=== PATIENT | male | born 1975 | race Caucasian/White ===

== ENCOUNTER 2019-08-18 12:22 | Emergency (ER) | payer OTHER ==
[~2019-08-18] VITALS: Ht 167.6 cm; Wt 107.5 kg
== END 2019-08-18 15:23 | disposition home or self-care (01) ==
LOC: ER 12:22
DX: M94.0 Chondrocostal junction syndrome [Tietze] (principal)

== ENCOUNTER 2024-05-05 07:40 | Emergency (ER) | payer OTHER ==
[~2024-05-05] VITALS: Ht 167.6 cm; Wt 124.7 kg
[2024-05-05 07:46] VITALS: BP 107/68; O2SAT 96
[2024-05-05] MEDS ORDERED: GLUMETZA500 MG (07:46)
[2024-05-05] MEDS ORDERED: SYMBICORT 16010.2 GM (07:48)
[2024-05-05] MEDS ORDERED: LEVALBUTEROL HCL 0.63 MG/3 ML SOLUTION IH SCH (08:45)
[2024-05-05] MEDS ORDERED: METHYLPREDNISOLONE SOD SUCC 40 MG VIAL IM ONE (08:45)
[2024-05-05] MEDS ORDERED: BENZONATATE 100 MG CAPSULE PO ONE (08:45)
[2024-05-05] MEDS ORDERED: IPRATROPIUM BROMIDE 0.5 MG/2.5 ML AMPUL.NEB IH ONE (08:45)
[2024-05-05 08:54] LABS: HEMATOCRIT 45.6 % (39.0-48.0); HEMOGLOBIN 15.5 g/dL (13-16.00); MEAN CELL VOLUME 82.2 fL (80.0-100.00); MEAN CORPUSCULAR HEMOGLOBIN 27.9 pg (27.00-32.0); MEAN CORPUSCULAR HGB CONC 33.9 g/dl (32.0-36.0); PLATELET COUNT 235 K/uL (150-450); RED BLOOD COUNT 5.54 M/uL (4.00-6.00); RED CELL DISTRIBUTION WIDTH 14.4 % (11.5-14.5)
[2024-05-05 09:20] LABS: ABG PH 7.402 (7.35-7.45); ABG PO2 82.7 mmHg (80-100); ABG pCO2 40.5 mmHg (35-45); BASE EXCESS -0.1 mmol/l; BICARBONATE 24.7 mmol/l (23-25); SaO2 96.1 %; Tco2 25.9 mmol/l
[2024-05-05 09:50] LABS: ALBUMIN 3.7 gm/dL (3.4-5.0); BILIRUBIN TOTAL 0.48 mg/dL (0.3-1.2); CALCIUM 9.3 mg/dL (8.5-10.1); CREATININE SERUM 0.98 mg/dL (0.70-1.30); GFR 81.98; GLOBULINA 4.3 G/DL (2.4-3.5); POTASSIUM 3.9 mEq/L (3.5-5.1)
[2024-05-05] MEDS ORDERED: LEVALBUTER0.63 MG/3 IH (11:01)
[2024-05-05] MEDS ORDERED: SINGULAIR10 MG PO (11:01)
[2024-05-05 12:44] LABS: allen test SATISFACTORY; o2 21 %; puncture site RADIAL RIGHT
== END 2024-05-05 11:35 | disposition home or self-care (01) ==
LOC: ER 07:42
PROVIDERS: General Practice
DX: J45.901 Unspecified asthma with (acute) exacerbation (principal); E11.9 Type 2 diabetes mellitus without complications; Z79.84 Long term (current) use of oral hypoglycemic drugs